=== PATIENT | female | born 2005 ===

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

== ENCOUNTER 2025-01-07 09:56 | Emergency (ER) | payer OTHER ==
[~2025-01-07] VITALS: Ht 149.9 cm; Wt 47.6 kg
[2025-01-07 10:34] VITALS: BP 114/73
== END 2025-01-07 11:27 | disposition home or self-care (01) ==
LOC: ER 09:56
DX: R11.2 Nausea with vomiting, unspecified (principal); T43.215A Adverse effect of selective serotonin and norepinephrine reuptake inhibitors, initial encounter
CPT/HCPCS: 99283